=== PATIENT | male | born 1965 ===

== ENCOUNTER 2019-07-09 07:18 | Emergency (ER) | payer SELFPAY ==
[~2019-07-09] VITALS: Ht 165.1 cm; Wt 109.1 kg
[2019-07-09 07:37] VITALS: BP 113/47
--- NOTE | 2019-07-09 08:24 | NUR ---
pt to imaging
--- NOTE | 2019-07-09 09:10 | NUR ---
PT RETURNED FROM XRAY
== END 2019-07-09 10:16 | disposition home or self-care (01) ==
LOC: ED 10:05
DX: S16.1XXA Strain of muscle, fascia and tendon at neck level, initial encounter (principal); S39.012A Strain of muscle, fascia and tendon of lower back, initial encounter; R94.31 Abnormal electrocardiogram [ECG] [EKG]; V53.5XXA Driver of pick-up truck or van injured in collision with car, pick-up truck or van in traffic accident, initial encounter; Y93.89 Activity, other specified; Y92.410 Unspecified street and highway as the place of occurrence of the external cause; Y99.8 Other external cause status
CPT/HCPCS: 72110; 72125; 93005; 99284